=== PATIENT | female | born 2000 | race Caucasian/White ===

== ENCOUNTER 2025-05-12 14:40 | Emergency (ER) | payer BC, SELFPAY ==
[2025-05-12 14:43] VITALS: BP 102/70; PULSE 100; RESP 16; TEMP 37; O2SAT 100
--- OUTSIDE RECORDS SUMMARY | 2025-05-12 14:50 | XMS_ITS | Clinical Summary ---
Author Organization [facility] Address [address] [place] [address] Care Team Providers Care Title Camera Operator Name Role Phone Patria Dunn MD Primary Care Provider [phone] Source Comments [facility],non-owned Affiliates and Associated Physician Practices is amultiple site organization consisting of ambulatory clinics and hospital sitesin [place], [place], [place] and [place]. This disclosure is being madepursuant to the Care Everywhere program and may not contain all information available regarding this patient. Last updated 18.[facility] [employer] Allergies No known active allergies Medications * This document contains information received from the source organization and may not represent a complete record from that organization. * Be aware that medications may not be up to date on this document. Alwaysverify current medications with the patient. Oxycodone-Aceta minophen (PERCOCET PO) Active Ondansetron HCl (ZOFRAN PO) Active OLANZapine, disintegrating, (ZYPREXA ZYDIS) 10 MG tablet Take 10 mg by mouth once daily Active metoclopramide (REGLAN) 10 MG tablet Take 10 mg by mouth 3 times daily before meals Active calcium carbonate (CALTRATE) 600 MG tablet Take 1 tablet by mouth 2 times daily with morning and evening meal Active vitamin D3 (D--GILES) 400 UNIT/ML solution Active Active Problems Problem Noted Date Diagnosed Date Hx of eating disorder 08/22/2018 Back pain 01/16/2016 Family History Medical History Relation Name Comments Substance Dependence Mother History of alcohol issues. None now. 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 Gender Identity Not on file Sexual Orientation Not on file Last Filed Vital Signs Vital Sign Reading Time Taken Comments Blood Pressure 98/58 08/22/2018 6:15 PM CDT Pulse 84 08/22/2018 6:15 PM CDT Temperature 36.7 C (98 F) 08/22/2018 6:15 PM CDT Respiratory Rate 16 08/22/2018 6:15 PM CDT Oxygen Saturation - - Inhaled Oxygen Concentration - - Weight 51 kg (112 lb 7 oz) 08/22/2018 3:58 PM CD T Height 156 cm (5' 1.42) 08/22/2018 3:58 PM CDT Body Mass Index 20.96 08/22/2018 3:58 PM CDT Plan of Treatment Health Maintenance Due Date Last Done Comments HIV SCREENING 2016 HPV VACCINE (1 - 3-dose series) 2016 CHLAMYDIA/GONORRHEA SCREENING 2017 MENINGOCOCCAL (Group B) VACC INE SHARED DECISION-MAKING (1 of 2 - Standard) 2017 HEPATITIS C SCREENING 10/29/2019 DTAP/TDAP/TD VACCINES (1 - Tdap) 2020 HEPATITIS B VACCINE (1 of 3 - 19+ 3-dose series) 2020 PAP SMEAR 2022 COVID-19 VACCINE (1 - 2023-2 5 season) 2024 DEPRESSION SCREENING 10/25/2024 INFLUENZA VACCINE (#1) 2025 ZOSTER VACCINE (1 of 2) 2051 HIB VACCINE Aged Out No longer eligi ble based on patient's age to complete this topic MENINGOCOCCAL GROUPS A/C/Y/W VACCINE Aged Out No longer eligible b ased on patient's age to complete this topic PNEUMOCOCCAL VACCINE Aged Out No long er eligible based on patient's age to complete this topic Insurance ANTHEM Member Subscriber Plan / Payer (Ef fective 2007-Present) Name:Cynthia Murillo Member ID:Not on file Relation to Subscriber:Child Name:LIAM MURILLO Date of :1975 (Home) (Work) Address: [address] [place] [address] Payer ID:[id number] (NAIC) Type:PPO Address: [place] [phone] ANTHEM * Guarantor: LIAM MURILLO Account Type Relation to Patient Date of Phone Billing Address Behavior Health Father ANTHEM Care Teams Title Camera Operator Relationship Specialty Start Date End Date Patria Dunn MD [address] [place] [phone] PCP - General 08/28/22
--- OUTSIDE RECORDS SUMMARY | 2025-05-12 14:50 | XMS_ITS | Encounter Summary ---
Author Organization [facility] Healthcare Address [address] [place] [address] Care Team Providers Care Bpm Architect Name Role Phone Lily Aguiar MD Unavailable [phone] Liliana Avila NP Primary Care Provider [phone] Encounter Details Date Type Department Care Team (Late st Contact Info) Description 04/23/2025 Results Follow-Up [facility] Medical Group Primary Care [address] [place] [phone] Liliana Avila, DOCTOR ASSISTANT [address] [place] [phone] XR Spine Thoracic 3 Vw Social History Tobacco Use Types Packs/Day Years Used Date Smoking Tobacco: Every Day Cigarettes Vaping Smokeless Tobacco: Never Alcohol Use Standard Drinks/Week Comments No 0 (1 standard drink = 0.6 oz pur e alcohol) AUDIT-C Answer Date Recorded Q1: How often do you have a drink containing alc ohol? Never 01/14/2022 Average Number of Drinks Not on file 022 Frequency of Binge Drinking Not on file 12/24 PHQ-2 Answer Date Recorded PHQ-2 Total Score (If total score is 3 or more points, staff should administer the PHQ-9) 4 04/23/2025 PHQ-9 Answer Date Recorded PHQ-9 Total Score 12 04/23/2025 Personal Safety Answer Date Recorded Have you ever been in or are you currently in a harmful physical or emotional relationship or is someone making you feel afraid or unsafe? 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
--- OUTSIDE RECORDS SUMMARY | 2025-05-12 14:50 | XMS_ITS | Encounter Summary ---
Author Organization [facility] Healthcare Address [address] [place] [address] Care Team Providers Care Spot Remover Name Role Phone Lily Aguiar MD Unavailable [phone] Liliana Avila NP Primary Care Provider [phone] Encounter Details Date Type Department Care Team (Late st Contact Info) Description 04/23/2025 Results Follow-Up [facility] Medical Group Primary Care [address] [place] [phone] Liliana Avila, MIXER OPERATOR [address] [place] [phone] Urinalysis reflex to microscopic and culture Urine, bladder Social History Tobacco Use Types Packs/Day Years [...] on file Legal Sex Female 6:48 AM [employer] Gender Identity Not on file Sexual Orientation Not on file documented as of this encounter Plan of Treatment Not on file documented as of this encounter Visit Diagnoses Not on filedocumented in this encounter Care Teams Spot Remover Relationship Specialty Start Date End Date Liliana Avila NP [address] [place] [phone] PCP - General Internal Medicine 03/01/23 Lily Aguiar MD [address] [place] [phone] Consulting Physician Obstetrics and Gynecology 12/17/21 documented as of this encounter
--- OUTSIDE RECORDS SUMMARY | 2025-05-12 14:50 | XMS_ITS | Encounter Summary ---
Author Organization [facility] Healthcare Address [address] [place] [address] Care Team Providers Care Motocross Racer Name Role Phone Lily Aguiar MD Unavailable [phone] Liliana Avila NP Primary Care Provider [phone] Reason for Visit * Reason Onset Date Comments No Contact Made 02/09/2025 Encounter Details Date Type Department Care Team (Late st Contact Info) Description 02/09/2025 Nurse Triage [facility] Medical [facility] Primary Care [address] [place] [phone] Donna Rodriguez RN Social History Tobacco Use Types Packs/Day Years [...] points, staff should administer the PHQ-9) 4 02/13/2025 PHQ-9 Answer Date Recorded PHQ-9 Total Score 15 02/13/2025 Personal Safety Answer Date Recorded Have you ever been in or are you currently in a harmful physical or emotional relationship or is someone making you feel afraid or unsafe? 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 Provider is out office at this time. If symptomsgets worse pt will need to be seen at convenient care or ER * Telephone Encounter - Donna Rodriguez RN - 02/09/2025 8:51 AM CDT Triage nurse attempted x 2 without success to reach pt. LVM that pt will need to call back for triage will not make further attempts. Pt spoke with CS earlier today as follows: Regarding: dizziness, light headiness ----- Message from Yuni Bender sent at 02/09/2025 8:18 AM CDT ----- Symptom Based Call Chief Complaint(s): dizziness, light headiness Duration: 2 days What type of symptom(s) is the patient experiencing? Red Flag. Is the patient concerned they are experiencing a medical emergency requiring an ambulance? No Additional Comments: Caller (on HIPAA) states that patient let they know they have these symptoms again, they have had in the past and scheduled a follow up for Wednesday02/12/2025. They phone number [phone] is the patient's phone number to call. Message routed for FYI-HP call * Telephone Encounter - Donna Rodriguez RN - 02/09/2025 8:51 AM CDT Reason for Disposition ??? Second attempt to contact caller AND no contact made. Phone number verified. Protocols used: No Contact or Duplicate Contact [id number] * Telephone Encounter - Betzaida Webber RN - 02/09/2025 8:27 AM CDT Regarding: dizziness, light headiness ----- Message from Yuni Bender sent at 02/09/2025 8:18 AM CDT ----- Symptom Based Call Chief Complaint(s): dizziness, light headiness Duration: 2 days What type of symptom(s) is the patient experiencing? Red Flag. Is the patient concerned they are experiencing a medical emergency requiring an ambulance? No Additional Comments: Caller (on HIPAA) states that patient let they know they have these symptoms again, they have had in the past and scheduled a follow up for Wednesday02/12/2025. They phone number [phone] is the patient's phone number to call. Does message need to be routed? Yes-Action Needed documented in this encounter Plan of Treatment Not on file documented as of this encounter Visit Diagnoses Not on filedocumented in this encounter Care Teams Motocross Racer Relationship Specialty Start Date End Date Liliana Avila NP [address] [place] [phone] PCP - General Internal Medicine 03/01/23 Lily Aguiar MD [address] [place] [phone] Consulting Physician Obstetrics and Gynecology 12/17/21 documented as of this encounter
--- OUTSIDE RECORDS SUMMARY | 2025-05-12 14:50 | XMS_ITS | Clinical Summary ---
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 ur Negative Negative JORGE Comment:Testing performed by : [address] [address] Blood, ur Negative Negative JORGE Comment:Testing performed by : [address] [address] Urobilinogen, ur <2.0 <2.0 mg/dL JORGE Comment:Testing performed by : [address] [address] Nitrite, ur Negative Negative JORGE Comment:Testing performed by : [address] [address] Leukocyte esterase, ur Negative Negative JORGE Comment:Testing performed by : [address], [place]., [address] UA reflex comment Reflex conditions for microscopic UA and culture not met. JORGE Comment:Testing performed by : [facility], [address] [place] [address]., [address] Urine, bladder 04/23/2025 10 :38 AM CDT 04/23/2025 12:41 PM CDT Narrative JORGE - 04/23/2025 12:45 PM CDT Urine Collection Method->Clean Catch Liliana Avila NP LAB MICROBIOLOGY - GENERAL ORDERABLES Final Result JORGE [address] [facility] Department [place] [address] * (ABNORMAL) POCT urinalysis dipstick (03/22/2025 3:07 PM CDT) Color, Urine, POC Yellow Clarity, ur, POC Cloudy(A) Clear Glucose, ur, POC Negative Negative Bilirubin, ur, POC Negative Negative Ketones, ur, POC 40.(A) Negative Specific [place], POC 1.025 1.003 - 1.030 Blood, ur, POC Moderate(A) Negative pH, ur, POC 5.5 5.0 - 8.0 Protein, ur, POC Negative Negative Urobilinogen, urine, POC 0.2 0.2 - 1.0 mg/dL Nitrite, ur, POC Negative Negative Leukocytes, ur, POC Small(A) Negative Lot Number [id number] Urine 03/22/2025 3:07 PM CDT Liliana Avila NP POINT OF CARE TEST ORDERAB LES Final Result * (ABNORMAL) Urine culture Urine, clean voided (03/22/2025 3:06 PM CDT) Report Final Report: Greater than or equal to 100,000 colonies/mL of Escherichia coli (.) Comment:Testing performed by : [facility], [address] [facility], [place]., [address] Organism ESCHERICHIA COLI JORGE Urine, clean voided 03/22/2025 3:06 PM CDT 03/22/2025 9:33 PM CDT Narrative JORGE - 03/24/2025 4:03 PM CDT Testing performed by [facility] Microbiology Laboratory ([phone]) Organism Antibiotic Method Susceptibility Escherichia coli Ampicillin INTERPRETATION Resistant Escherichia coli Cefazolin INTERPRETATION Susceptible Escherichia coli Nitrofurantoin INTERPRETATION Susceptible Escherichia coli Gentamicin INTERPRETATION Susceptible Escherichia coli Trimethoprim with Sulfamethoxazole IN TERPRETATION Susceptible Escherichia coli Meropenem INTERPRETATION Susceptible Escherichia coli Cefepime INTERPRETATION Susceptible Escherichia coli Ciprofloxacin INTERPRETATION Susceptible Escherichia coli Ceftazidime INTERPRETATION Susceptible Escherichia coli Ceftriaxone INTERPRETATION Susceptible Escherichia coli Piperacillin/Tazobactam INTERPRETATIO N Susceptible Escherichia coli Cephalexin INTERPRETATION Susceptible Escherichia coli Cefuroxime-axetil INTERPRETATION Susceptible Escherichia coli Cefdinir INTERPRETATION Susceptible us Liliana Avila NP LAB MICROBIOLOGY - GENERAL ORDERABLES Final Result JORGE [address] [facility] Department [place] [address] * eGFR (02/13/2025 3:52 PM CDT) Pathologist [facility] eGFR >90 >=60 mL/min/1. 73 m2 Comment: Interpretive Data Reference Interval Normal >/= 90 mL/min/1.73m2 Mildly decreased* 60 - 89 mL/min/1.73m2 Mildly to moderately decreased 45 - 59 mL/min/1.73m2 Moderately to severely decreased 30 - 44 mL/min/1.73m2 Severely decreased 15 - 29 mL/min/1.73m2 Kidney Failure < 15 mL/min/1.73m2 *Relative to young adult level Estimated glomerular filtration rate is determined by the 2020 CKD-EPI equation recommended by the National Kidney Foundation (A Unifying Approach to GFR Estimation: Recommendations of the NKF-ASK Task Force on Reassessing the Inclusion of Race in Diagnosing Kidney Disease, JASN 2020). The CKD-EPI equation should not be used for patients with unstable renal function and has not been validated in children and those over 70. Current interpretive data was last reviewed 2021. Testing performed by: [facility], [address] [place] [address]., [address] Blood 02/13/2025 3:52 PM CDT 02/13/2025 4:10 PM CDT Liliana Avila NP LAB BLOOD ORDERABLES Final Result JORGE [address] [facility] Department [place] [address] * Differential, auto (02/13/2025 3:52 PM CDT) Neutrophil abs 4.36 1.50 - 6.50 K/cumm Comment:Testing performed by : [address] [address] Imm gran abs 0.02 0.00 - 0.10 K/cumm JORGE Comment:Testing performed by : [address] [address] Lymphocyte abs 2.08 0.80 - 3.30 K/cumm JORGE Comment:Testing performed by : [address] [address] Monocyte abs 0.43 0.20 - 0.80 K/cumm JORGE Comment:Testing performed by : [address] [address] Eosinophil abs 0.10 0.00 - 0.50 K/cumm JORGE Comment:Testing performed by : [address] [address] Basophil abs 0.05 0.00 - 0.10 K/cumm JORGE Comment:Testing performed by : [address] [address] Neutrophil pct 62.0 % JORGE Comment: Interpretive Data Percent cell count reference ranges are not reported, since discordance with absolute values may lead to misinterpretation of CBC data. Current Interpretive Data was last revised on 2018. Testing performed by: [address] [address] Imm gran pct 0.3 % JORGE Comment: Interpretive Data Percent cell count reference ranges are not reported, since discordance with absolute values may lead to misinterpretation of CBC data. Current Interpretive Data was last revised on 2018. Testing performed by: [address] [address] Lymphocyte pct 29.5 % [facility] Comment: Interpretive Data Percent cell count reference ranges are not reported, since discordance with absolute values may lead to misinterpretation of CBC data. Current Interpretive Data was last revised on 2018. Testing performed by: [address] [address] Monocyte pct 6.1 % [facility] Comment: Interpretive Data Percent cell count reference ranges are not reported, since discordance with absolute values may lead to misinterpretation of CBC data. Current Interpretive Data was last revised on 2018. Testing performed by: [address] [address] Eosinophil pct 1.4 % [facility] Comment: Interpretive Data Percent cell count reference ranges are not reported, since discordance with absolute values may lead to misinterpretation of CBC data. Current Interpretive Data was last revised on 2018. Testing performed by: [address] [address] Basophil pct 0.7 % [facility] Comment: Interpretive Data Percent cell count reference ranges are not reported, since discordance with absolute values may lead to misinterpretation of CBC data. Current Interpretive Data was last revised on 2018. Testing performed by: [address] [address] Blood 02/13/2025 3:52 PM CDT 02/13/2025 4:10 PM CDT us Liliana Avila KILN REMOVER LAB BLOOD ORDERABLES Final Result JORGE [address] [facility] Department [place] [address] * Thyroid Function Har[place] (02/13/2025 3:52 PM CDT) TSH 1.12 0.30 - 4.20 mcIUnit/mL Comment:Testing performed by : [address] [address] Blood 02/13/2025 3:52 PM CDT 02/13/2025 4:09 PM CDT Liliana Avila KILN REMOVER LAB BLOOD ORDERABLES Final Result Performing Organization Address [facility] de Phone Number JORGE [facility]0 [facility] [place] [address] * (ABNORMAL) Iron profile w/ IBC (02/13/2025 3:52 PM CDT) Iron 54 35 - 145 mcg/dL Comment:Testing performed by : [address] [address] TIBC 329 250 - 400 mcg/dL JORGE DE LEON Comment:Testing performed by : [address] [address] Transferrin saturation 16(L) 20 - 50 % JORGE DE LEON Comment:Testing performed by : [address] [address] Blood 02/13/2025 3:52 PM CDT 02/13/2025 4:09 PM CDT Liliana Avila KILN REMOVER LAB BLOOD ORDERABLES Final Result Performing Organization Address [facility] de Phone Number [address] [place] [address] * CBC with auto differential (02/13/2025 3:52 PM CDT) WBC 7.04 3.80 - 9.90 K/cumm Comment:Testing performed by : [address] [address] Hgb 12.8 11.9 - 15.5 g/dL JORGE DE LEON Comment:Testing performed by : [address] [address] Hct 39.2 35.6 - 45.5 % JORGE DE LEON Comment:Testing performed by : [address] [address] Plt 313 150 - 400 K/cumm JORGE DE LEON Comment:Testing performed by : [address] [address] MPV 9.5 9.1 - 12.3 fL JORGE DE LEON Comment:Testing performed by : [address] [address] RBC 4.60 3.90 - 5.20 M/cumm JORGE DE LEON Comment:Testing performed by : [address] [address] MCV 85.2 81.3 - 96.4 fL JORGE DE LEON Comment:Testing performed by : [address] [address] MCH 27.8 27.1 - 33.3 pg JORGE DE LEON Comment:Testing performed by : [address] [address] MCHC 32.7 32.3 - 35.7 g/dL JORGE DE LEON Comment:Testing performed by : [address] [address] RDW CV 14.3 11.1 - 14.9 % JORGE Comment:Testing performed by : [address] [address] RDW SD 44.1 35.7 - 48.1 fL JORGE DE LEON Comment:Testing performed by : [address] [address] NRBC abs 0.00 0.00 - 0.01 K/cumm JORGE Comment:Testing performed by : [address] [address] Blood 02/13/2025 3:52 PM CDT 02/13/2025 4:10 PM CDT Liliana Avila NP LAB BLOOD ORDERABLES Final Result JORGE DE LEON [facility]8 [facility] Department [place] [address] * (ABNORMAL) Vitamin D 25 hydroxy (02/13/2025 3:52 PM CDT) [facility] Vitamin D 25-OH 27.0(L) 30.0 - 80.0 ng/mL Blood 02/13/2025 3:52 PM CDT 02/13/2025 7:42 PM CDT Liliana Avila NP LAB BLOOD ORDERABLES Final Result Performing Organization Address City/[facility]/ZIP Co de Phone Number [address] [address] * Ferritin (02/13/2025 3:52 PM CDT) [facility] Ferritin 18 15 - 150 ng/mL Comment:Testing performed by : [address] [address] Blood 02/13/2025 3:52 PM CDT 02/13/2025 4:09 PM CDT Liliana Avila NP LAB BLOOD ORDERABLES Final Result Performing Organization Address [facility] Co de Phone Number [address] [address] * Vitamin B12 (02/13/2025 3:52 PM CDT) [facility] Vitamin B12 418 230 - 1,250 pg/mL Comment:Testing performed by : [address] [address] Blood 02/13/2025 3:52 PM CDT 02/13/2025 4:09 PM CDT Liliana Avila NP LAB BLOOD ORDERABLES Final Result Performing Organization Address City/[facility] Co de Phone Number [address] [address] * Lipid panel (02/13/2025 3:52 PM CDT) [facility] Cholesterol 169 30 - 199 mg/dL Comment: Interpretive Data Ages < or = 19 years Acceptable: <170 mg/dL Borderline high: 170-199 mg/dL High: >or= 200 mg/dL Ages > or = 20 years Desirable: <200 mg/dL Borderline high: 200-239 mg/dL High: >or= 240 mg/dL Literature References: 1. Expert Panel on Integrated Guidelines for Cardiovascular Health and Risk Reduction in Children and Adolescents. Pediatrics 2011;128:S213 2. NCEP Expert Panel. Circulation 2004;110:227 Current Interpretive Data was last revised on 2018. Testing performed by: [address] [address] Triglycerides 88 <=149 mg/dL JORGE Comment: Interpretive Data Ages < or = 9 years Acceptable: <75 mg/dL Borderline high: 75-99 mg/dL High: >or= 100 mg/dL Ages 10 to 20 years Acceptable: <90 mg/dL Borderline high: 90-129 mg/dL High: >or= 130 mg/dL Ages > or = 20 years Desirable: <150 mg/dL Borderline high: 150-199 mg/dL High: 200-499 mg/dL Very high: >or= 499 mg/dL Literature References: 1. Expert Panel on Integrated Guidelines for Cardiovascular Health and Risk Reduction in Children and Adolescents. Pediatrics 2011;128:S213 2. NCEP Expert Panel. Circulation 2004;110:227 Current Interpretive Data was last revised on 2018. Testing performed by: [address] [address] HDL 59 >=40 mg/dL JORGE Comment: Interpretive Data Ages < or = 19 years Acceptable: >45 mg/dL Borderline low: 40-45 mg/dL Low: <40 mg/dL Ages > or = 20 years Desirable: >or= 60 mg/dL Low: <40 mg/dL Literature References: 1. Expert Panel on Integrated Guidelines for Cardiovascular Health and Risk Reduction in Children and Adolescents. Pediatrics 2011;128:S213 2. NCEP Expert Panel. Circulation 2004;110:227 Current Interpretive Data was last revised on 2018. Testing performed by: [address] [address] LDL, calculated 94 <=129 mg/dL JORGE Comment: Interpretive Data Ages < or = 19 years Acceptable: <110 mg/dL Borderline high: 110-129 mg/dL High: >or= 130 mg/dL Ages > or = 20 years Optimal: <100 mg/dL Near optimal: 100-129 mg/dL Borderline high: 130-159 mg/dL High: >160 mg/dL Calculated using the Dean LDL-C estimating equation. This equation was implemented on 2024. Prior to this date LDL-C was estimated using the Friedewald equation. Literature References: 1. Expert Panel on Integrated Guidelines for Cardiovascular Health and Risk Reduction in Children and Adolescents. Pediatrics 2011;128:S213 2. NCEP Expert Panel. Circulation 2004;110:227 3. Dean M et al. ALEXIS Cardiol. 2020 February 22;5(5):540-548. doi: 10.1001/jamacardio.2020.0013 Current Interpretive Data was last revised on 2024. Testing performed by: [address] [address] Non-HDL Cholesterol 110 mg/dL JORGE Comment: Interpretive Data Ages < or = 19 years Acceptable: <120 mg/dL Borderline high: 120-144 mg/dL High: >145 mg/dL Ages > or = 20 years When triglycerides are >200 mg/dL, Non-HDL cholesterol is a secondary target of therapy with treatment goals that are 30 mg/dL greater than the LDL cholesterol target. Literature References: 1. Expert Panel on Integrated Guidelines for Cardiovascular Health and Risk Reduction in Children and Adolescents. Pediatrics 2011;128:S213 2. NCEP Expert Panel. Circulation 2004;110:227 Current Interpretive Data was last revised on 2018. Testing performed by: [address] [address] Chol/HDL ratio 3 JORGE Comment:Testing performed by : [address] [address] Blood 02/13/2025 3:52 PM CDT 02/13/2025 4:09 PM CDT us Liliana Avila NP LAB BLOOD ORDERABLES Final Result JORGE [address] [facility] Department [place] [address] * Comprehensive metabolic panel (02/13/2025 3:52 PM CDT) Sodium 141 135 - 145 mmol/L Comment:Testing performed by : [facility], [address] [place] [address]., [address] Potassium, pl 4.0 3.3 - 4.9 mmol/L JORGE Comment:Testing performed by : [address], [place]., [address] Chloride 103 97 - 110 mmol/L JORGE Comment:Testing performed by : [address], [place]., [address] CO2 25 22 - 32 mmol/L JORGE Comment:Testing performed by : [address], [place]., [address] Anion gap 13 2 - 15 mmol/L JORGE Comment:Testing performed by : [address] [address] BUN 14 6 - 25 mg/dL JORGE Comment:Testing performed by : [address] [address] Creatinine 0.60 0.60 - 1.10 mg/dL JORGE Comment:Testing performed by : [address] [address] Glucose 84 70 - 199 mg/dL JORGE Comment: Interpretive Data Fasting glucose >/= 126 mg/dl is diagnostic for diabetes. Fasting is defined as no caloric intake for at least 8 hours. Fasting glucose between 100 mg/dl to 125 mg/dl is diagnostic of prediabetes. In a patient with classic symptoms of hyperglycemia or hyperglycemic crisis, a random glucose >/= 200 mg/dl is diagnostic for diabetes. In the absence of unequivocal hyperglycemia, results should be confirmed by repeat testing. The classification and Diagnosis of Diabetes Diabetes Care 2021; 46: S19-S40. Current interpretive data was last revised 2022. Testing performed by: [address] [address] Calcium 9.8 8.5 - 10.3 mg/dL JORGE Comment:Testing performed by : [address] [address] Bilirubin, total 0.4 0.1 - 1.2 mg/dL JORGE Comment:Testing performed by : [address] [address] Protein, pl 7.8 6.5 - 8.5 g/dL JORGE Comment:Testing performed by : [address] [address] Albumin 4.6 3.5 - 5.0 g/dL JORGE Comment:Testing performed by : [address], [place]., [address] Alk phos 50 40 - 130 Units/L JORGE Comment:Testing performed by : [address] [address] ALT 8 7 - 45 Units/L JORGE Comment:Testing performed by : [address] [address] AST 14 10 - 45 Units/L JORGE Comment:Testing performed by : [address] [address] Blood 02/13/2025 3:52 PM CDT 02/13/2025 4:09 PM CDT us Liliana Avila KILN REMOVER LAB BLOOD ORDERABLES Final Result JORGE [facility] Department of Laboratories [place], [place] [id number] * Pap with reflex to High Risk HPV and Genotyping (Cytology Component) (01/22/2025 11:49 AM CDT) Endocervical (Pap test) 01/22/2025 11:49 AM CDT 01/23/2025 4:00 AM CDT Narrative PATHOLOGY [facility] - 02/01/2025 6:32 AM CDT [facility] results best viewed via link to PDF [facility] [place] [address] Note to Patients: This report may contain a detailed description of human tissue sent by a health care provider to the laboratory for pathologic evaluation. The content of this report is essential for diagnosis and may provide important critical findings. This information may be unfamiliar to patients to review without a medical professional present. It is advised that the patient review this report in the presence of a health care provider who can answer questions and explain the details. CYTOPATHOLOGY REPORT FINAL Patient Name: DEMETRA MURILLO Gender: F : 2000 (Age: 24) Address: [address] [place] [id number] [facility] #: [id number] Service: DEFAULT Location: Patient Type: [facility] SPECIMEN Taken: 01/22/2025 Received: 01/23/2025 Accessioned: 01/23/2025 Reported: 02/01/2025 Physician(s): Tawanna Jackson CNM FINAL INTERPRETATION SOURCE OF SPECIMEN Liquid based Thin Prep pap with Reflex HPV: STATEMENT OF ADEQUACY - Satisfactory for evaluation - Endocervical cells/transformation zone sample present GENERAL CATEGORIZATION: - Negative for squamous intraepithelial lesion or malignancy /02/01/2025 06:32 JOSÉ Myers(ASCP) Report Electronically Reviewed and Signed Out By JOSÉ Myers(ASCP) 02/01/2025 06:32:07 Cervicovaginal Cytology (Pap Test) Disclaimer: The Pap test is a screening test used to detect cervical cancer and its precursors; it is not a diagnostic procedure. False negative and false positive results do occur. Pap test results should be interpreted in the context of pertinent clinical information and biopsy results as indicated. CMS Clinical Laboratory Improvement Amendments (CLIA) mandate that cytologic and histologic results be correlated for laboratory senior data quality analyst & improvement standards. FOR ALL HIGH-GRADE CASES we request submission of follow-up histological material and/or reports that have not been previously provided so that we may fulfill said required standards. Gross Description A. Liquid based Thin Prep pap with Reflex HPV: Cervical/vaginal - Screening ThinPrep Clinical Diagnosis and History Last Menstrual Period: ocp The patient is a 24 year old female with screening. Report Images and scanned documents, if included only viewable in PDF version The performance characteristics of some immunohistochemical stains, in-situ hybridization and fluorescence in-situ hybridization tests and immunophenotyping by flow cytometry cited in this report (if any) were determined by the Surgical Pathology Department at [facility] as part of an ongoing air quality consultant program and in compliance with federally mandated regulations drawn from the Clinical Laboratory Improvement Act of 1988 (CLIA '88). Some of these tests rely on the use of analyte specific reagents and are subject to specific labeling requirements by the US Food and Drug Administration. Such diagnostic tests may only be performed in a facility that is certified by the Department of Health and Human Services as a high complexity laboratory under CLIA '88. The FDA has determined that such clearance or approval is not necessary. This test is used for clinical purposes. It should not be regarded as investigational or for research. Nevertheless, federal rules concerning the medical use of analyte specific reagents require that the following disclaimer be attached to the report: This test was developed and its performance characteristics determined by the Surgical Pathology Department of [facility]. It has not been cleared or approved by the U. S. Food and Drug Administration. Tawanna Jackson [facility] LAB CYTOLOGY ORDERA BLES Final Result PATHOLOGY [facility] * Hepatitis panel, acute Blood (07/29/2023 4:11 PM CDT) Hep A IgM Nonreactive Nonreactive Comment: Interpretive Data: If Hep A IgM Ab is reported as Equivocal, a new sample should be drawn in two weeks for testing. Current interpretive data was last revised on 20. Hep B core IgM Nonreactive Nonreactive JORGE Comment: Interpretive Data If HepB Core IgM Ab is reported as Equivocal, a new sample should be drawn in two weeks for testing. Current interpretive data was last revised on 20. Hep C Ab Nonreactive Nonreactive JORGE Comment: Interpretive Data Nonreactive: Antibodies to HCV not detected. Does NOT exclude the possibility of recent exposure to HCV. Equivocal: Equivocal for HCV antibodies. Supplemental molecular testing will be automatically performed to determine infection status in accordance with current CDC screening recommendations. Reactive: Positive for HCV antibodies. This may represent current or past HCV infection. Supplemental molecular testing will be automatically performed to determine current infection status in accordance with current CDC screening recommendations. Interpretive data was last revised on 2020. HepBsAg Nonreactive Nonreactive JORGE Blood 07/29/2023 4:11 PM CDT 07/29/2023 6:23 PM CDT Lily Aguiar MD LAB MICROBIOLOGY - GENERAL ORDERABLES Final Result Performing Organization Address [facility] Co de Phone Number JORGE [address] [facility] [place] [address] * N. gonorrhoeae/C. trachomatis Amplification Vaginal (07/29/2023 3:39 PM CDT) C. trachomatis Not Detected Not Detected JORGE Comment:Testing performed by : [facility], [address] [place] [address]., [address] N. gonorrhoeae Not Detected Not Detected JORGE Comment: Interpretive Data Testing performed by the [facility]. This assay detects Chlamydia trachomatis and Neisseria gonorrhoeae by nucleic acid amplification testing (NAAT). This test is approved by the [place] Food and Drug Administration and the performance characteristics have been verified by the laboratory. The performance characteristics of this test have not been evaluated in individuals less than 14 years of age. Current Interpretive Data was last revised on 2019. Testing performed by: [facility], [address] [place] [address]., [id number] Vaginal 07/29/2023 3:39 PM CDT 07/30/2023 5:51 PM CDT Lily Aguiar MD LAB MICROBIOLOGY - GENERAL ORDERABLES Final Result Performing Organization Address City/[facility] Co de Phone Number JORGE [phone] [facility] [place] [address] from Last 3 Months or Most Recently Relevant to Health Maintenance Insurance BLUE ACCESS OOS Nitronex ACCESS OOS BLUE ACCESS OOS Rayneer OOS Advance Directives For more information, please contact: [phone] * Full Code (Latest Code Status on File) Date Activated Date Inactivated Comments 04/06/2019 7:06 PM 04/08/2019 1:02 AM * Full Code Date Activated Date Inactivated Comments 01/19/2019 11:49 PM 01/21/2019 5:44 AM * Full Code Date Activated Date Inactivated Comments 06/11/2018 4:06 AM 06/13/2018 8:01 PM Care Teams Maintenance Advisor Relationship Specialty Start Date End Date Liliana Avila NP [address] [place] [id number] PCP - General Internal Medicine 03/01/23 Lily Aguiar MD NPI: [id number] [place] [id number] Consulting Physician Obstetrics and Gynecology 12/17/21
--- OUTSIDE RECORDS SUMMARY | 2025-05-12 14:50 | XMS_ITS | Referral Summary ---
Author Organization [facility] Address [address] [place] [address] Care Team Providers Care Ring Striker Name Role Phone Lily Aguiar MD Unavailable Liliana Avila INSEAM TRIMMER Primary Care Provider [phone]- [phone] Encounters Date Type Department Care Team Description 04/23/2025 Results Follow-Up [facility] [address] [place] [phone] Liliana Avila, SANTHOSH XR Spine Thoracic 3 Vw 04/23/2025 Results Follow-Up [facility] [address] [place] [phone] Liliana Avila, SANTHOSH Urinalysis reflex to microscopic and culture Urine, bladder 04/23/2025 11:02 AM CDT - 04/23/2025 11:59 PM CDT Hospital Encounter [facility] MOB 1 DIAG IMG [address] [place] [phone] Acute bilateral low back pain without sciatica; Mid back pain Discharge Disposition: Discharge to home or self care 04/23/2025 10:20 AM CDT Lab [facility] Medical [facility] Building [address] [place] [id number] Dysuria 04/23/2025 11:00 AM CDT Office Visit [facility] [address] [place] [phone] Liliana Avila NP Acute bilateral low back pain without sciatica (Primary Dx); Mid back pain; Strain of lumbar region, initial encounter; Other osteoporosis without current pathological fracture; Underweight (BMI < 18.5) 03/26/2025 Results Follow-Up [facility] [address] [place] [phone] Liliana Avila NP Urine culture Urine, clean voided 03/22/2025 4:07 PM CDT - 03/22/2025 11:59 PM CDT Hospital Encounter [facility] Lab [address] [place] [phone] Acute cystitis without hematuria Discharge Disposition: Discharge to home or self care 03/22/2025 3:00 PM CDT Office Visit [facility] Care [address] [place] [phone] Liliana Avila NP Acute cystitis without hematuria (Primary Dx); Underweight (BMI < 18.5) 02/14/2025 Results Follow-Up [facility] Care [address] [place] [phone] Liliana Avila NP Thyroid Function [place], CBC with auto differential, Comprehensive metabolic panel, Additional followed-up results: 7 02/13/2025 3:[address] [facility] Lab [address] [place] [phone] Dizziness; Encounter for general adult medical examination with abnormal findings; Screening for lipid disorders; Vitamin D deficiency; Other iron deficiency anemia; B12 deficiency 02/13/2025 3:00 PM CDT Office Visit [address] [phone] Liliana Avila NP Dizziness (Primary Dx); Other iron deficiency anemia; Other constipation 02/12/2025 Telephone [facility] Care [address] [place] [phone] Mehochko, Liliana N., INSEAM TRIMMER from Last 3 Months Allergies No known active allergies Medications esomeprazole [...] and nutritional rehabilitation. -Adolescent Med following, c/s shipping coordinator -Start with 1500 kcal/day with slow uptitration -q4h VS, orthostatic vitals, CR monitor only if <40 overnight -Monitor for refeeding syndrome with daily AM labs (BMP, Mg, Phos, UA) x3-5 days. -1:1 sitter Assessment & Plan (01/20/2019 12:48 PM CDT): Assessment: 18yo with relapse of restrictive-type eating disorder in the setting of worsening depression. Follow[facility] by [facility]. Plan: -daily weight after first AM void & before breakfast -calorie count -RD consult -Adolescent Medicine consult, appreciate their recommendations -F/U with parents regarding involvement in [facility] Assessment & Plan (01/20/2019 1:12 AM CDT): Assessment: 18yo with relapse of restrictive-type eating disorder in the setting of worsening depression. Followed by [facility]. Plan: -daily weight after first AM void & before breakfast -calorie count -RD consult -consider Adolescent Medicine consult -F/U with parents regarding involvement in [facility] Assessment & Plan (06/13/2018 10:28 AM CDT): Demetra is a 17yo with a history of anxiety, restrictive eating, and self- injurious behavior (cutting) presenting with food restriction and passive SI. She is tolerating meals without nausea. Labs normal (including K, phos, Mg) reassuring against re-feeding syndrome. Planning for dispo per psychiatry to [facility]. If no bed is available today 06/13, will discharge to home if medically stable and plan for admission to [facility] once a bed is available. Plan: -1:1 sitter -psychology, psychiatry, nutrition following -Calorie counts -30 min for meals, allowed to pick food options with nutrition - Awaiting dispo to [facility] vs home Assessment & Plan (06/12/2018 11:50 [...] syndrome. Planning for dispo per psychiatry to [facility]. If no bed is available 06/13, will discharge to home if medically stable and plan for admission to [facility] once a bed is available. 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 Advised to follow-up with PCP if headaches don't resolve, ER for worsening or new symptoms over the weekend. Viral respiratory infection 12/07/2019 12/28/2024 Assessment & Plan (12/07/2019 10:35 PM SANDING MACHINE TENDER): Medrol Dosepak as directed. Advised to continue [...] consult - f/u UDS Chest tightness 12/28/2024 Immunizations Immunization Administration Dates Next Due DTaP 05/09/2002,03/03/2002,01/02/2002 Hep B, Adolescent or Pediatric 08/09/2002,2001,2001 HiB 08/09/2002,05/09/2002,01/02/2002 IPV 03/03/2002,01/02/2002 Influenza, Quadrivalent, Spl it, Preservative Free, Intramuscular 11/09/2023,10/09/2022 Influenza, Trivalent, Preser vative Free, Intramuscular 08/29/2024 Influenza, Unspecified 07/25/2021,2019,07/25/2019,07/25 Meningococcal MCV4P (Menactra) 07/16/2019,2012 Pneumococcal Conjugate 7-Valent 08/09/2002,05/09,01/02/2002 Tdap 04/24/2013 Social History Tobacco Use Types Packs/Day Years [...] on file Legal Sex Female 6:48 AM SANDING MACHINE TENDER Gender Identity Not on file Sexual Orientation Not on file Last Filed Vital Signs Vital Sign Reading Time Taken Comments Blood Pressure 90/58 04/23/2025 10:40 AM CDT Pulse 81 04/23/2025 10:40 AM CDT Temperature 37.3 C (99.1 F) 04/23/2025 10:40 AM CDT Respiratory Rate 16 08/29/2024 2:31 PM SANDING MACHINE TENDER Oxygen Saturation 99% 04/23/2025 10:40 AM CDT Inhaled Oxygen Concentration - - Weight 42.3 kg (93 lb 3.2 oz) 04/23/2025 10:40 A M CDT Height 154.9 cm (5' 1) 04/23/2025 10:40 AM CDT Body Mass Index 17.61 04/23/2025 10:40 AM CDT Plan of Treatment Not on file Procedures Procedure Name Priority Date/Time Associated Diagnosis [...] Dago Grimes M.D. MF: GERBER Report ID: [id number] Reading Location: [place] [address] Procedure Note Dago Grimes MD - 04/23/2025 [...] Dago Grimes M.D. MF: GERBER Report ID: [id number] Reading Location: [place] [address] Liliana Avila NP IMG XR PROCEDURES Final [...] Dago Grimes M.D. MF: GERBER Report ID: [id number] Reading Location: [place] [address] Procedure Note Dago Grimes MD - 04/23/2025 [...] Dago Grimes M.D. MF: GERBER Report ID: [id number] Reading Location: [place] [address] Liliana Avila INSEAM TRIMMER IMG XR PROCEDURES Final Re sult * Urinalysis reflex to microscopic and culture Urine, bladder (04/23/2025 10:38 AM CDT) Color, ur Yellow Yellow Comment:Testing performed by : [address] [address] Clarity, ur Clear Clear JORGE DE LEON Comment:Testing performed by : [address] [address] Specific gravity, ur 1.023 1.003 - 1.030 JORGE DE LEON Comment:Testing performed by : [facility], [address] [place] [address], [place]., [address] pH, urine 7.0 JORGE Comment: Interpretive Data U rine pH is affected by diet, medications, systemic acid-base disturbances, and renal tubular function. pH may affect urinary stone formation. For example, urine pH below 6.0 may help reduce the tendency for calcium phosphate stones and pH greater than 6.0 may reduce the tendency for uric acid stone formation. Source: [facility] Current Interpretive Data was last revised on 2017 Testing performed by: [facility], [address] [place] [address], [place]., [address] Protein, ur ql Negative Negative JORGE Comment:Testing performed by : [address], [place]., [address] Glucose, ur ql Negative Negative JORGE Comment:Testing performed by : [address], [place]., [address] Ketones, ur Negative Negative JORGE Comment:Testing performed by : [address], [place]., [address] Bilirubin, ur Negative Negative JORGE Comment:Testing performed by : [address], [place]., [address] Blood, ur Negative Negative JORGE Comment:Testing performed by : [address], [place]., [address] Urobilinogen, ur <2.0 <2.0 mg/dL JORGE Comment:Testing performed by : [address], [place]., [address] Nitrite, ur Negative Negative JORGE Comment:Testing performed by : [address], [place]., [address] Leukocyte esterase, ur Negative Negative JORGE Comment:Testing performed by : [address], [place]., [address] UA reflex comment Reflex conditions for microscopic UA and culture not met. JORGE Comment:Testing performed by : [address], [place]., [address] Urine, bladder 04/23/2025 10 :38 AM CDT 04/23/2025 12:41 PM CDT Narrative JORGE - 04/23/2025 12:45 PM CDT Urine Collection Method->Clean Catch us Liliana Avila NP LAB MICROBIOLOGY - GENERAL ORDERABLES Final Result JORGE [address] [facility] [place] [address] * (ABNORMAL) POCT urinalysis dipstick (03/22/2025 3:07 PM CDT) Color, Urine, POC Yellow Clarity, ur, POC Cloudy(A) Clear Glucose, ur, POC Negative Negative Bilirubin, ur, POC Negative Negative Ketones, ur, POC 40.(A) Negative Specific [place], POC 1.025 1.003 - 1.030 Blood, ur, POC Moderate(A) Negative pH, ur, POC 5.5 5.0 - 8.0 Protein, ur, POC Negative Negative Urobilinogen, urine, POC 0.2 0.2 - 1.0 mg/dL Nitrite, ur, POC Negative Negative Leukocytes, ur, POC Small(A) Negative Lot Number [id number] Urine 03/22/2025 3:07 PM CDT us Liliana Avila NP POINT OF CARE TEST ORDERAB LES Final Result * (ABNORMAL) Urine culture Urine, clean voided (03/22/2025 3:06 PM CDT) Report Final Report: Greater than or equal to 100,000 colonies/mL of Escherichia coli (.) Comment:Testing performed by : [facility], [address] [place]., [address] Organism ESCHERICHIA COLI JORGE Urine, clean voided 03/22/2025 3:06 PM CDT 03/22/2025 9:33 PM CDT Narrative JORGE - 03/24/2025 4:03 PM CDT Testing performed by [facility] ([phone]) Organism Antibiotic Method Susceptibility Escherichia coli Ampicillin [...] INTERPRETATION Susceptible Escherichia coli Cefdinir INTERPRETATION Susceptible Liliana Avila NP LAB MICROBIOLOGY - GENERAL ORDERABLES Final Result Performing Organization Address [facility] Co de Phone Number JORGE [address] [facility] [place] [address] * eGFR (02/13/2025 3:52 PM CDT) [facility] eGFR >90 >=60 mL/min/1. 73 m2 Comment: [...] was last reviewed 2021. Testing performed by: [facility], [address] [place] [address]., [address] Blood 02/13/2025 3:52 PM CDT 02/13/2025 4:10 PM CDT Liliana Avila NP LAB BLOOD ORDERABLES Final Result Performing Organization Address City/[facility]/ZIP Co de Phone Number JORGE [address] [facility] [place] [address] * Differential, auto (02/13/2025 3:52 PM CDT) Neutrophil abs 4.36 1.50 - 6.50 K/cumm Comment:Testing performed by : [address] [address] Imm gran abs 0.02 0.00 - 0.10 K/cumm JORGE Comment:Testing performed by : [address] [address] Lymphocyte abs 2.08 0.80 - 3.30 K/cumm JORGE Comment:Testing performed by : [address] [address] Monocyte abs 0.43 0.20 - 0.80 K/cumm JORGE Comment:Testing performed by : [address] [address] Eosinophil abs 0.10 0.00 - 0.50 K/cumm JORGE Comment:Testing performed by : [address] [address] Basophil abs 0.05 0.00 - 0.10 K/cumm JORGE Comment:Testing performed by : [address] [address] Neutrophil pct 62.0 % JORGE Comment: Interpretive Data Percent cell count reference ranges are not reported, since discordance with absolute values may lead to misinterpretation of CBC data. Current Interpretive Data was last revised on 2018. Testing performed by: [address] [address] Imm gran pct 0.3 % JORGE Comment: Interpretive Data Percent cell count reference ranges are not reported, since discordance with absolute values may lead to misinterpretation of CBC data. Current Interpretive Data was last revised on 2018. Testing performed by: [address] [address] Lymphocyte pct 29.5 % JORGE Comment: Interpretive Data Percent cell count reference ranges are not reported, since discordance with absolute values may lead to misinterpretation of CBC data. Current Interpretive Data was last revised on 2018. Testing performed by: [address] [address] Monocyte pct 6.1 % [facility] Comment: Interpretive Data Percent cell count reference ranges are not reported, since discordance with absolute values may lead to misinterpretation of CBC data. Current Interpretive Data was last revised on 2018. Testing performed by: [address] [address] Eosinophil pct 1.4 % [facility] Comment: Interpretive Data Percent cell count reference ranges are not reported, since discordance with absolute values may lead to misinterpretation of CBC data. Current Interpretive Data was last revised on 2018. Testing performed by: [address] [address] Basophil pct 0.7 % [facility] Comment: Interpretive Data Percent cell count reference ranges are not reported, since discordance with absolute values may lead to misinterpretation of CBC data. Current Interpretive Data was last revised on 2018. Testing performed by: [address] [address] Blood 02/13/2025 3:52 PM CDT 02/13/2025 4:10 PM CDT us Liliana Avila NP LAB BLOOD ORDERABLES Final Result JORGE [address] [facility] [place] [address] * Thyroid Function [place] (02/13/2025 3:52 PM CDT) TSH 1.12 0.30 - 4.20 mcIUnit/mL Comment:Testing performed by : [address] [address] Blood 02/13/2025 3:52 PM CDT 02/13/2025 4:09 PM CDT us Liilana Avila INSEAM TRIMMER LAB BLOOD ORDERABLES Final Result Performing Organization Address [facility] Co de Phone Number JORGE [address] [facility] [place] [address] * (ABNORMAL) Iron profile w/ IBC (02/13/2025 3:52 PM CDT) Pathologist [facility] Iron 54 35 - 145 mcg/dL Comment:Testing performed by : [address] [address] TIBC 329 250 - 400 mcg/dL JORGE DE LEON Comment:Testing performed by : [address] [address] Transferrin saturation 16(L) 20 - 50 % JORGE DE LEON Comment:Testing performed by : [address] [address] Blood 02/13/2025 3:52 PM CDT 02/13/2025 4:09 PM CDT Liliana Avila INSEAM TRIMMER LAB BLOOD ORDERABLES Final Result Performing Organization Address [facility] Co de Phone Number JORGE [address] [facility] [place] [address] * CBC with auto differential (02/13/2025 3:52 PM CDT) [facility] WBC 7.04 3.80 - 9.90 K/cumm Comment:Testing performed by : [address] [address] Hgb 12.8 11.9 - 15.5 g/dL JORGE DE LEON Comment:Testing performed by : [address] [address] Hct 39.2 35.6 - 45.5 % JORGE DE LEON Comment:Testing performed by : [address] [address] Plt 313 150 - 400 K/cumm JORGE DE LEON Comment:Testing performed by : [address] [address] MPV 9.5 9.1 - 12.3 fL JORGE DE LEON Comment:Testing performed by : [address] [address] RBC 4.60 3.90 - 5.20 M/cumm JORGE DE LEON Comment:Testing performed by : [address] [address] MCV 85.2 81.3 - 96.4 fL JORGE DE LEON Comment:Testing performed by : [address] [address] MCH 27.8 27.1 - 33.3 pg JORGE DE LEON Comment:Testing performed by : [address] [address] MCHC 32.7 32.3 - 35.7 g/dL JORGE Comment:Testing performed by : [address] [address] RDW CV 14.3 11.1 - 14.9 % JORGE Comment:Testing performed by : [address] [address] RDW SD 44.1 35.7 - 48.1 fL JORGE Comment:Testing performed by : [address] [address] NRBC abs 0.00 0.00 - 0.01 K/cumm JORGE Comment:Testing performed by : [address] [address] Blood 02/13/2025 3:52 PM CDT 02/13/2025 4:10 PM CDT Liliana Avila INSEAM TRIMMER LAB BLOOD ORDERABLES Final Result JORGE [address] [facility] [place] [address] * (ABNORMAL) Vitamin D 25 hydroxy (02/13/2025 3:52 PM CDT) Vitamin D 25-OH 27.0(L) 30.0 - 80.0 ng/mL Blood 02/13/2025 3:52 PM CDT 02/13/2025 7:42 PM CDT Liliana Avila NP LAB BLOOD ORDERABLES Final Result Performing Organization Address City/[facility] Co de Phone Number JORGE [address] [address] * Ferritin (02/13/2025 3:52 PM CDT) Ferritin 18 15 - 150 ng/mL Comment:Testing performed by : [address] [address] Blood 02/13/2025 3:52 PM CDT 02/13/2025 4:09 PM CDT Liliana Avila NP LAB BLOOD ORDERABLES Final Result Performing Organization Address [facility] de Phone Number JORGE [address] [address] * Vitamin B12 (02/13/2025 3:52 PM CDT) Pathologist [facility] Vitamin B12 418 230 - 1,250 pg/mL Comment:Testing performed by : [address] [address] Blood 02/13/2025 3:52 PM CDT 02/13/2025 4:09 PM CDT Liliana Avila NP LAB BLOOD ORDERABLES Final Result Performing Organization Address City/[facility] Co de Phone Number JORGE [address] [address] * Lipid panel (02/13/2025 3:52 PM CDT) Cholesterol 169 30 - 199 mg/dL Comment: [...] last revised on 2018. Testing performed by: [address] [address] Triglycerides 88 <=149 mg/dL JORGE Comment: Interpretive [...] last revised on 2018. Testing performed by: [address] [address] HDL 59 >=40 mg/dL JORGE Comment: Interpretive [...] last revised on 2018. Testing performed by: [address] [address] LDL, calculated 94 <=129 mg/dL JORGE Comment: [...] NCEP Expert Panel. Circulation 2004;110:227 3. Dean Caldwell et al. ALEXIS Cardiol. 2019February 22;5(5):540-548. doi: 10.1001/jamacardio.2020.0013 Current Interpretive Data was last revised on 2024. Testing performed by: [address] [address] Non-HDL Cholesterol 110 mg/dL JORGE DE LEON Comment: Interpretive Data Ages < or = [...] last revised on 2018. Testing performed by: [address] [address] Chol/HDL ratio 3 JORGE DE LEON Comment:Testing performed by : [address] [address] Blood 02/13/2025 3:52 PM CDT 02/13/2025 4:09 PM CDT Liliana Avila NP LAB BLOOD ORDERABLES Final Result JORGE DE LEON [address] [facility] [place] [address] * Comprehensive metabolic panel (02/13/2025 3:52 PM CDT) [facility] Signature Sodium 141 135 - 145 mmol/L Comment:Testing performed by : [facility], [address] [place] [address], [place]., [address] Potassium, pl 4.0 3.3 - 4.9 mmol/L JORGE Comment:Testing performed by : [address], [place]., [address] Chloride 103 97 - 110 mmol/L JORGE Comment:Testing performed by : [address], [place]., [address] CO2 25 22 - 32 mmol/L JORGE Comment:Testing performed by : [address], [place]., [address] Anion gap 13 2 - 15 mmol/L JORGE Comment:Testing performed by : [address], [place]., [address] BUN 14 6 - 25 mg/dL JORGE Comment:Testing performed by : [address], [place]., [address] Creatinine 0.60 0.60 - 1.10 mg/dL JORGE Comment:Testing performed by : [address], [place]., [address] Glucose 84 70 - 199 mg/dL JORGE [...] classification and Diagnosis of Diabetes Diabetes Care 202; 46: S19-S40. Current interpretive data was last revised 2022. Testing performed by: [address] [address] Calcium 9.8 8.5 - 10.3 mg/dL JORGE Comment:Testing performed by : [address], [place]., [address] Bilirubin, total 0.4 0.1 - 1.2 mg/dL JORGE Comment:Testing performed by : [address] [address] Protein, pl 7.8 6.5 - 8.5 g/dL JORGE Comment:Testing performed by : [address] [address] Albumin 4.6 3.5 - 5.0 g/dL JORGE Comment:Testing performed by : [address] [address] Alk phos 50 40 - 130 Units/L JORGE Comment:Testing performed by : [address] [address] ALT 8 7 - 45 Units/L JORGE Comment:Testing performed by : [address] [address] AST 14 10 - 45 Units/L JORGE Comment:Testing performed by : [address] [address] Blood 02/13/2025 3:52 PM CDT 02/13/2025 4:09 PM CDT Liliana Avila INSEAM TRIMMER LAB BLOOD ORDERABLES Final Result JORGE [address] [facility] [place] [address] * Pap with reflex to High Risk HPV and Genotyping (Cytology Component) (01/22/2025 11:49 AM CDT) Endocervical (Pap test) 01/22/2025 11:49 AM CDT 01/23/2025 4:00 AM CDT Narrative PATHOLOGY [facility] - 02/01/2025 6:32 AM CDT EPIC results best viewed via link to PDF [facility] of Surgical [place] [address] Note to Patients: This report may contain [...] Gender: F : 2000 (Age: 24) Address: [address] [place] [id number] Hospital #: [id number] Service: DEFAULT Location: Patient Type: [facility] SPECIMEN Taken: 01/22/2025 Received: 01/23/2025 Accessioned: 01/23/2025 Reported: 02/01/2025 Physician(s): Tawanna Jackson CNM FINAL INTERPRETATION SOURCE OF SPECIMEN Liquid based Thin Prep pap with Reflex HPV: STATEMENT OF ADEQUACY - Satisfactory for evaluation - Endocervical cells/transformation zone sample present GENERAL CATEGORIZATION: - Negative for squamous intraepithelial lesion or malignancy annalee/02/01/2025 06:32 JOSÉ Myers(ASCP) Report Electronically Reviewed and [...] clinical information and biopsy results as indicated. [facility] Clinical Laboratory Improvement Amendments (CLIA) mandate that cytologic and histologic results be correlated for laboratory director supplier quality & improvement standards. FOR ALL HIGH-GRADE CASES [...] determined by the Surgical Pathology Department at [facility] as part of an ongoing senior quality control technician program and in compliance with federally mandated [...] determined by the Surgical Pathology Department of [facility]. It has not been cleared or approved by the U. S. Food and Drug Administration. Tawanna JORGE LAB CYTOLOGY ORDERA BLES Final Result PATHOLOGY [facility] * Hepatitis panel, acute Blood (07/29/2023 4:11 PM CDT) Hep A IgM Nonreactive Nonreactive Comment: Interpretive Data: If Hep A IgM Ab is reported as Equivocal, a new sample should be drawn in two weeks for testing. Current interpretive data was last revised on 20. Hep B core IgM Nonreactive Nonreactive [facility] Comment: Interpretive Data If HepB Core IgM Ab is reported as Equivocal, a new sample should be drawn in two weeks for testing. Current interpretive data was last revised on 20. Hep C Ab Nonreactive Nonreactive [facility] Comment: Interpretive Data Nonreactive: Antibodies to HCV [...] last revised on 2020. HepBsAg Nonreactive Nonreactive [facility] Blood 07/29/2023 4:11 PM CDT 07/29/2023 6:23 PM CDT Lily Aguiar MD LAB MICROBIOLOGY - GENERAL ORDERABLES Final Result Performing Organization Address [facility] Co de Phone Number [address] [place] [address] * N. gonorrhoeae/C. trachomatis Amplification Vaginal (07/29/2023 3:39 PM CDT) C. trachomatis Not Detected Not Detected JORGE DE LEON Comment:Testing performed by : [facility], [address] [place] [address]., [id number] N. gonorrhoeae Not Detected Not Detected JOR[facility] DE ELON Comment: Interpretive Data Testing performed by the [facility]. This assay detects Chlamydia trachomatis and Neisseria gonorrhoeae by nucleic acid amplification testing (NAAT). This test is approved by the [facility] Food and Drug Administration and the performance characteristics have been verified by the laboratory. The performance characteristics of this test have not been evaluated in individuals less than 14 years of age. Current Interpretive Data was last revised on 2019. Testing performed by: [facility], [address] [place] [address]., [id number] Vaginal 07/29/2023 3:39 PM CDT 07/30/2023 5:51 PM CDT Lily Aguiar MD LAB MICROBIOLOGY - GENERAL ORDERABLES Final Result Performing Organization Address [facility] Co de Phone Number JOR[address] [facility] [place] [address] from Last 3 Months or Most Recently Relevant to Health Maintenance Insurance [employer]ESS [employer] Advance Directives For more information, please contact: [phone] * Full Code (Latest Code Status on File) Date Activated Date Inactivated Comments 04/06/2019 7:06 PM 04/08/2019 1:02 AM * Full Code Date Activated Date Inactivated Comments 01/19/2019 11:49 PM 01/21/2019 5:44 AM * Full Code Date Activated Date Inactivated Comments 06/11/2018 4:06 AM 06/13/2018 8:01 PM Care Teams Ring Striker Relationship Specialty Start Date End Date Liliana Avila NP [address] [place] [id number] PCP - General Internal Medicine 03/01/23 Lily Aguiar MD [address] [place] [address] [phone] Consulting Physician Obstetrics and Gynecology 12/17/21
--- OUTSIDE RECORDS SUMMARY | 2025-05-12 14:50 | XMS_ITS | Clinical Summary ---
Author Organization [facility] Address Count includes the [facility] [place] [facility] [place] [address] Care Team Providers Care Vba Programmer Name Role Phone Carmen Trevizo MD Primary Care Provider [phone] Allergies No known active allergies Medications esomeprazole (NEXIUM) 20 MG capsule Take 20 mg by mouth every morning before breakfast. Active famotidine (PEPCID) 20 MG tablet Take 20 mg by mouth 2 (two) times daily. Active dicyclomine (BENTYL) 10 MG capsule Take 10 mg by mouth 4 (four) times daily before meals and nightly. Active albuterol sulfate HFA 108 (90 Base) MCG/ACT inhaler Inhale 2 puffs into the lungs every 6 (six) hours as needed for Wheezing. 1 g 01/18/2023 Active Family History Medical History Relation Comments No Known Problems Father No Known Problems Mother Relation Status Comments Father Alive Mother Alive Social History Tobacco Use Types Packs/Day Years Used Date Smoking Tobacco: Never Smokeless Tobacco: Never Tobacco Cessation:Counseling Given: Not Answered Alcohol Use Standard Drinks/Week Comments No 0 (1 standard drink = 0.6 oz pur e alcohol) AUDIT-C Answer Date Recorded Frequency of Alcohol Consumption Never 08/27/2018 Average Number of Drinks Not on file 018 Frequency of Binge Drinking Not on file 12/2017 Comments No Sex and Gender Information Value Date Recorded Sex Assigned at Not on file Legal Sex Female 8:09 PM CDT Gender Identity Not on file Sexual Orientation Not on file Last Filed Vital Signs Vital Sign Reading Time Taken Comments Blood Pressure 125/88 04/09/2023 11:34 AM CDT Pulse 116 04/09/2023 11:34 AM CDT Temperature 37.2 C (98.9 F) 04/09/2023 11:34 AM CDT Respiratory Rate 18 04/09/2023 11:34 AM CDT Oxygen Saturation 100% 04/09/2023 11:34 AM CDT Inhaled Oxygen Concentration - - Weight 46.3 kg (102 lb) 04/09/2023 11:34 AM CDT Height 154.9 cm (5' 1) 04/09/2023 11:34 AM CDT Body Mass Index 19.27 04/09/2023 11:34 AM CDT Plan of Treatment Health Maintenance Due Date Last Done Comments Cervical Cancer Screening Pap Smear (Age 21 to 29) Every 3 Years 2001 Cervical Cancer Screening 2001 Annual Physical 2004 HPV Vaccines (1 - 3-dose series) 2016 Meningococcal B Vaccine (1 of 2 - Standard) 2017 Hepatitis C 2019 DTaP, Tdap and Td Vaccines (5 - Td or Tdap) 04/24/2023 04/24/2013, 05/09/2002, 03/03/2002, Additional history exists COVID-19 Vaccine ( season) 2024 Hepatitis B Vaccines Completed 08/09/2002, 2001, 2001 Pneumococcal Vaccine: Pediatrics (0 to 5 Years) and At-Risk Patients (6 to 49 Years) Aged Out 08/09/2002, 05/09/2002, 01/02/2002 No longer eligible based on patient's age to complete this topic Meningococcal Vaccine Completed 07/16/2019, 013 RSV Immunizations Under 20 Months Aged Out No longer eligible based on patient's age to complete this topic Insurance [address] [place] [address] [facility] Care Teams Vba Programmer Relationship Specialty Start Date End Date Carmen Trevizo MD PCP - General INTERNAL MEDICINE 08/09/20
--- NOTE | 2025-05-12 14:52 | ED.URI ---
HPI - URI/Sore Throat General Chief Complaint: Upper Respiratory Infection Stated Complaint: Sore Throat Time Seen by Provider: 05/12/25 14:53 History of Present Illness HPI Narrative: 24 y/o female presented for c/o sore throat. Onset yesterday. Denies any associated symptoms. Not taking anything for symptoms. Related Data Home Medications ?Medication ?Instructions ?Recorded ?Confirmed ?Last Taken ?Type No Home Medications 05/12/25 05/12/25 Unknown History Allergies Allergy/AdvReac Type Severity Reaction Status Date / Time No Known Allergies Allergy Verified 05/12/25 14:45 Review of Systems Review of Systems: CONSTITUTIONAL: Denies body aches, fever, chills, or sweats. EYES: Denies visual changes, redness, or discharge. ENT: reports sore throat Denies rhinorrhea, congestion, or otalgia. CARDIOVASCULAR: Denies chest pain, palpitations, or edema. RESPIRATORY: Denies dyspnea. GASTROINTESTINAL: Denies abdominal pain, nausea, vomiting, or diarrhea. SKIN: Denies rash NEUROLOGIC: Denies headache Exam Narrative: GENERAL: ill-appearing, no acute distress. EYES: conjunctivae clear ENT: Mucous membranes moist. TM pearly rayo with normal light reflex bilaterally; no tragal tenderness. Oropharynx erythematous; left tonsil with white patch c/w stone. Tonsils enlarged 1+ and without exudate. No drooling, no hoarseness, no trismus, uvula midline. No tripod positioning, hot potato voice, or soft palate swelling. NECK: Supple. No lymphadenopathy CHEST: Clear to auscultation, breath sounds equal. No respiratory distress, speaks in full sentences. HEART: Regular rate and rhythm. No murmur heard. SKIN: Warm, dry, no rash. NEURO: Alert and oriented x3. Course Course Emergency Course: Patient is aware of diagnosis, understands and agrees to treatment plan. Anticipatory guidance given. Patient agrees to follow-up as directed and is aware of reasons to seek care at the emergency department. Portions of this record may have been created with voice recognition software Level of Care: Express Care Visit MDM - URI/Sore Throat MDM Narrative Medical decision making narrative: neg strep result reviewed with pt. Advise supportive treatments. Patient is appropriate for outpatient treatment and follow-up. Differential Diagnosis Differential diagnosis: Likely upper respiratory infection, viral infection and pharyngitis Discharge Plan Discharge Clinical Impression: Pharyngitis Qualifiers: Pharyngitis/tonsillitis etiology: unspecified etiology Qualified Code(s): J02.9 - Acute pharyngitis, unspecified Patient Disposition: Home Condition: Stable Instructions: Antibiotic Form, Strep Throat (ED) Additional Instructions: Rapid strep swab was negative today You will be notified in a few days if the culture comes back positive for strep, and appropriate antibiotics will be called in at that time. if symptoms are due to a viral illness, it is not treated with antibiotics. Viral symptoms can be present for up to 10-14 days. Recommendations: Tylenol every 8 hours as needed for pain/fever Soft foods, cool liquids, warm tea. Gargle with warm saltwater twice a day. Chloraseptic spray and throat lozenges. Rest and stay hydrated. --Follow up with your PCP --Go to the ER immediately if you cannot swallow your saliva, trouble breathing/wheezing, throat swelling, pain is persistent and severe Patient Language: Kenyan Prescriptions: No Action No Home Medications Follow-up/Referrals: Austni,Liliana Smalls, DIRECTOR FURNITURE [Primary Care Provider] - Time of Disposition: 15:09
[2025-05-12 15:10] LABS: EDSTREPNEGPOS1 Negative (Negative)
== END 2025-05-12 15:10 | disposition home or self-care (01) ==
PROVIDERS: Emergency Provider Nurse Practitioner Family; PCP Nurse Practitioner
DX: J02.9 Acute pharyngitis, unspecified (principal)
CPT/HCPCS: 87880; 99202; G0463